=== PATIENT | male | born 1970 | race African-American/Black ===

== ENCOUNTER 2018-01-09 01:48 | Inpatient (IN) | payer OTHER ==
[2018-01-09] VITALS (10 sets, daily range): BP systolic 137–179; BP diastolic 82–129
[~2018-01-09] VITALS: Ht 190.5 cm; Wt 123.2 kg
--- NOTE | ~2018-01-09 | 2DMMODE ---
[facility] [address] [place] [address] 2 D/M-MODE ECHOCARDIOGRAM Name: STACIA INGRAM Room #: 207-P ADM IN M.R.#: [id number] Admission: 01/09/18 Attend Phys: Walt Brown Discharge: Date of : 66 Date of Service: 01/09/18 1442 Report #: [id number] THIS REPORT FOR: //name// APPROVED REPORT Study performed: 01/09/2018 12:53:44 EXAM: Comprehensive 2D, Doppler, and color-flow Echocardiogram Patient Location: In-Patient Room #: 207 Status: routine BSA: 2.51 HR: 62 bpm BP: 164/110 mmHg Rhythm: NSR Other Information Study Quality: Good Risk Factors: Cardiac Risk Factors: HTN, Hyperlipidemia, Smoking Indications Chest Pain Hypertension/HDD 2D Dimensions RVDd: 35.18 mm IVSd: 16.02 (7-11mm) LVOT Diam: 25.62 (18-24mm) LVDd: 43.89 mm PWd: 14.24 (7-11mm) Ascending Ao: 37.85 (22-36mm) LVDs: 26.27 (25-40mm) Aortic Root: 45.47 mm IVC: 18.00 mm Volumes Left Atrial Volume (Systole) Single Plane 4CH: 27.20 mL Single Plane 2CH: 41.24 mL LA ESV Index: 15.00 mL/m2 Aortic Valve AoV Peak Balwinder.: 1.34 m/s AO Peak Gr.: 7.13 mmHg LVOT Max P.21 mmHg LVOT Max V: 1.14 m/s SUZANNE Vmax: 4.41 cm2 [facility] [address] [address] 2 D/M-MODE ECHOCARDIOGRAM Name: STACIA INGRAM Room #: [address] [place] [address] IN [facility].#: [id number] Admission: 01/09/18 Attend Phys: Walt Brown Discharge: Date of : 66 Date of Service: 01/09/18 1442 Report #: [id number] Mitral Valve E/A Ratio: 0.7 MV Decel. Time: 200.89 ms MV E Max Balwinder.: 0.40 m/s MV A Balwinder.: 0.59 m/s MV PHT: 58.26 ms IVRT: 106.11 ms Pulmonary Valve PV Peak Balwinder.: 1.09 m/s PV Peak Gr.: 4.72 mmHg Pulmonary Vein P Vein S: 0.66 m/s P Vein A: 0.30 m/s P Vein D: 0.36 m/s P Vein A Dur.: 133.8 msec P Vein S/D Ratio: 1.83 Tricuspid Valve RAP Estimate: 5.00 mmHg Left Ventricle The left ventricle is normal size. Mild concentric left ventricular hypertrophy. The left ventricular systolic function is normal. The left ventricular ejection fraction is within the normal range. LVEF is 55-60%. Grade I - abnormal relaxation pattern. Right Ventricle The right ventricle is normal size. The right ventricular systolic function is normal. Atria The left atrium size is normal. The right atrium size is normal. Aortic Valve The aortic valve is normal in structure. Trace aortic regurgitation. There is no aortic valvular stenosis. Mitral Valve The mitral valve is normal in structure. Trace mitral regurgitation. No evidence of mitral valve stenosis. Tricuspid Valve The tricuspid valve is normal in structure. There is no tricuspid valve regurgitation noted. Unable to assess PA pressure. [facility] [address] [place] [address] 2 D/M-MODE ECHOCARDIOGRAM Name: STACIA INGRAM Room #: 207[facility] IN M.R.#: [id number] Admission: 01/09/18 Attend Phys: Walt Brown Discharge: Date of : 66 Date of Service: 01/09/18 1442 Report #: [id number] Pulmonic Valve The pulmonary valve is normal in structure. Trace pulmonic regurgitation. Great Vessels Aortic root is mildly dilated. The ascending aorta is normal in size. IVC is normal in size and collapses >50% with inspiration. Pericardium There is no pericardial effusion. <Conclusion> The left ventricle is normal size. Mild concentric left ventricular hypertrophy. The left ventricular systolic function is normal. Grade I - abnormal relaxation pattern. The right ventricle is normal size. The left atrium size is normal. Trace aortic regurgitation. Trace mitral regurgitation. There is no pericardial effusion. <ELECTRONICALLY SIGNED> By: Nicola Plascencia MD 01/09/181441 41 41 Nicola Plascencia MD /INF
--- NOTE | ~2018-01-09 | EKG ---
[place] [address] [facility] [place] [address] ELECTROCARDIOGRAM REPORT Name: STACIA INGRAM Room #: 207-P ADM IN M.R.#: [id number] Admission: 01/09/18 Attend Phys: Walt Bañuelos Discharge: Date of : 66 Report #: [id number] THIS REPORT FOR: //name// [facility] ED Test Date: 2018-01-09 Test Time: 03:06:22 Pat Name: STACIA INGRAM Department: Room: 207 Gender: M Group Work Program Aide: Pietro HOFF : 1970 Requested By: Antoni Gillespie Order Number: [id number] MD: Kulwant Porter Measurements Intervals [place] Rate: 66 P: 119 AL: 150 QRS: -16 QRSD: 89 T: 123 QT: 404 QTc: 424 Interpretive Statements Sinus rhythm Possible ventricular preexcitation Abnormal R-wave progression, early transition Inferior infarct, age indeterminate No previous ECG available for comparison Electronically Signed On 01-09-2018 8:01:32 HYDRAULIC DREDGE OPERATOR by Kulwant Porter [email or web address] <ELECTRONICALLY SIGNED> By: Kulwant Porter MD, [facility] 01/09/18 0801 5 5 Kulwant Porter MD, [facility] /EPI
--- NOTE | ~2018-01-09 | EKG ---
[place] [address] [address] [facility] [place] [address] ELECTROCARDIOGRAM REPORT Name: STACIA INGRAM Room #: 207-P ADM IN M.R.#: [id number] Admission: 01/09/18 Attend Phys: Walt Bañuelos Discharge: Date of : 66 Report #: [id number] THIS REPORT FOR: //name// [facility] Test Date: 2018-01-09 Test Time: 07:12:31 Pat Name: STACIA INGRAM Department: Room: 207 P Gender: M Certification Engineer: CATHERINE : 1970 Requested By: Marilee James Order Number: [id number] MD: Kulwant Porter Measurements Intervals [place] Rate: 74 P: 37 HI: 119 QRS: -26 QRSD: 110 T: 122 QT: 383 QTc: 425 Interpretive Statements Sinus rhythm Possible Vent pre-excitat'n(WPW) Inferior infarct, age indeterminate Early R-wave progression Nonspecific T wave abnormality No previous ECG available for comparison Electronically Signed On 01-09-2018 8:02:32 PAGE MAKEUP SYSTEM OPERATOR by Kulwant Porter [email or web address] <ELECTRONICALLY SIGNED> By: Kulwant Porter MD, [facility] 01/09/18801 1 1 Kulwant Porter MD, [facility] /EPI
--- NOTE | ~2018-01-09 | EKG ---
[place] [address] [address] [facility] [place] [address] ELECTROCARDIOGRAM REPORT Name: STACIA INGRAM Room #: 207-P ADM IN M.R.#: [id number] Admission: 01/09/18 Attend Phys: Walt Bañuelos Discharge: Date of : 66 Report #: [id number] THIS REPORT FOR: //name// [facility] ED Test Date: 2018-01-09 Test Time: 02:03:56 Pat Name: STACIA INGRAM Department: Room: 207 Gender: M Slash Trimmer: GUSTAVO : 1970 Requested By: Antoni Gillespie Order Number: [id number] MD: Kulwant Porter Measurements Intervals [place] Rate: 71 P: 122 OR: 153 QRS: -14 QRSD: 86 T: 136 QT: 346 QTc: 376 Interpretive Statements Sinus rhythm Possible ventricular preexcitation Abnormal R-wave progression, early transition Inferior infarct, age indeterminate No previous ECG available for comparison Electronically Signed On 01-09-2018 8:00:48 AROMATHERAPIST by Kulwant Porter [email or web address] <ELECTRONICALLY SIGNED> By: Kulwant Porter MD, [facility] 01/09/18 0800 2 2 Kulwant Porter MD, [facility] /EPI
[2018-01-09 02:23] LABS: ABSOLUTE NEUTROPHILS 3.9 thou/uL (1.4-8.2); EOSINOPHILS 2.4 % (0.0-3.0); HEMATOCRIT 43.1 % (42.0-52.0); HEMOGLOBIN 14.4 gm/dL (14.0-18.0); LYMPHOCYTES 28.5 % (24.0-44.0); MCH 32.4 pg (26.0-34.0); MCHC 33.3 g/dL (28.0-37.0); MCV 97.1 fL (80.0-100.0); MONOCYTES 9.6 % (1.0-8.0); PLATELET COUNT 206 thou/uL (150-400); POLYS 58.5 % (36.0-66.0); RBC 4.44 mil/uL (4.50-6.00); RDW 13.6 % (10.5-14.5); WBC 6.6 thou/uL (4.0-11.0)
[2018-01-09 02:38] LABS: ANION GAP 11 mmol/L (7-16); BUN 10 mg/dL (7-18); CALCIUM 9.2 mg/dL (8.5-10.1); CHLORIDE 103 mmol/L (98-107); CO2 24 mmol/L (21-32); CREATININE 1.1 mg/dL (0.7-1.3); GLUCOSE 115 mg/dL (74-106); POTASSIUM 4.1 mmol/L (3.5-5.1); SODIUM 138 mmol/L (136-145); TROPONIN-I <0.06 ng/mL (<0.06)
[2018-01-09 08:22] LABS: CHOLESTEROL 240 mg/dL (<200); HDL CHOLESTEROL 47 mg/dL (>40); LDL CHOLESTEROL 164 mg/dL (<100); TC:HDL 5.1 Ratio (Not establshd); TRIGLYCERIDE 149 mg/dL (<150); VLDL 30 mg/dL (<40)
[2018-01-09 19:06] LABS: GLYCOHEMOGLOBIN (HGB A1C) 5.9 % (4.8-5.6)
[2018-01-10 04:02] VITALS: BP 160/108
[2018-01-10 07:09] VITALS: BP 163/96
[2018-01-10] MEDS ORDERED: ATORVASTATIN CA40 MG PO (11:15)
[2018-01-10] MEDS ORDERED: AMLODIPINE BESY10 MG PO (11:15)
[2018-01-10] MEDS ORDERED: PEPCID20 MG PO (11:16)
[2018-01-10] MEDS ORDERED: ASA5UEC PO (11:16)
[2018-01-10] MEDS ORDERED: BENAZEPRIL HCL20 MG PO (11:16)
[2018-01-10 11:27] VITALS: BP 187/109
[2018-01-10 11:28] VITALS: BP 163/96
== END 2018-01-10 12:10 | disposition home or self-care (01) | DRG 313 ==
LOC: ER 01:48 → EROBS 03:13 → 2N 03:13
PROVIDERS: Emergency Medicine; Nurse Practitioner Acute Care
DX: R07.89 Other chest pain (principal); E78.5 Hyperlipidemia, unspecified; I11.9 Hypertensive heart disease without heart failure; F17.210 Nicotine dependence, cigarettes, uncomplicated; Z71.6 Tobacco abuse counseling; Z72.89 Other problems related to lifestyle; Z80.8 Family history of malignant neoplasm of other organs or systems
CPT/HCPCS: 10081

== ENCOUNTER 2018-03-21 16:59 | Emergency (ER) | payer OTHER ==
[~2018-03-21] VITALS: Ht 190.5 cm; Wt 122.5 kg
[~2018-03-21 16:59] MED LIST: AMLODIPINE BESY10 MG PO; ASA5UEC PO; ATORVASTATIN CA40 MG PO; BENAZEPRIL HCL20 MG PO; PEPCID20 MG PO
[2018-03-21 17:34] VITALS: BP 157/111
== END 2018-03-21 17:35 | disposition home or self-care (01) ==
LOC: ER 16:59
DX: A64 Unspecified sexually transmitted disease (principal); I10 Essential (primary) hypertension; E78.5 Hyperlipidemia, unspecified

== ENCOUNTER 2019-05-30 20:18 | Inpatient (IN) | payer OTHER ==
[~2019-05-30] VITALS: Ht 190.5 cm; Wt 112.9 kg
[2019-05-30 20:19] VITALS: BP 141/104
[2019-05-30 21:02] LABS: ABSOLUTE NEUTROPHILS 2.4 thou/uL (1.4-8.2); BASOPHILS 1.3 % (0.0-2.0); EOSINOPHILS 0.1 % (0.0-3.0); HEMATOCRIT 49.1 % (42.0-52.0); HEMOGLOBIN 16.5 gm/dL (14.0-18.0); MCHC 33.6 g/dL (28.0-37.0); MCV 98.2 fL (80.0-100.0); MONOCYTES 10.8 % (1.0-8.0); PLATELET COUNT 142 thou/uL (150-400); POLYS 60.8 % (36.0-66.0); RDW 13.4 % (10.5-14.5)
[2019-05-30 23:03] LABS: CALCIUM 8.5 mg/dL (8.5-10.1); CREATININE 1.2 mg/dL (0.7-1.3); POTASSIUM 3.5 mmol/L (3.5-5.1)
[2019-05-30 23:13] LABS: ALBUMIN 3.2 g/dL (3.4-5.0); DIRECT BILIRUBIN 0.1 mg/dL (<0.1-0.2); TOTAL BILIRUBIN 0.4 mg/dL (<0.1-1.0); TOTAL PROTEIN 6.9 g/dL (6.4-8.2); TROPONIN-I 0.09 ng/mL (<0.06)
[2019-05-31] VITALS (9 sets, daily range): BP systolic 122–150; BP diastolic 72–97
[2019-05-31 05:45] LABS: CHOLESTEROL 180 mg/dL (<200); HDL CHOLESTEROL 36 mg/dL (>40); LDL CHOLESTEROL 119 mg/dL (<100); TRIGLYCERIDE 125 mg/dL (<150); VLDL 25 mg/dL (<40)
[2019-05-31 05:53] LABS: SERUM ASSESSMENT Clear
--- NOTE | 2019-05-31 10:57 | EKG ---
[facility] [place] [address] ELECTROCARDIOGRAM REPORT Name: STACIA INGRAM Room #: 353-P ADM IN M.R.#: [id number] Admission: 05/30/19 Attend Phys: Kee Diaz MD Discharge: Date of : 66 Report #: [id number] THIS REPORT FOR: cc: ISAURO - Danette family physician/PCP ISAURO - Danette family physician/PCP Kulwant Porter MD [facility] THIS REPORT FOR: //name// [facility] ED Test Date: 2019-05-30 Test Time: 20:23:24 Pat Name: STACIA INGRAM Department: Room: 353 Gender: M Vehicle Glass Technician: josie hicks : 1970 Requested By: Kenzie Ortiz Order Number: [id number] MD: Kulwant Porter Measurements Intervals [place] Rate: 104 P: 6 IA: 135 QRS: -64 QRSD: 81 T: 59 QT: 317 QTc: 417 Interpretive Statements Sinus tachycardia Abnormal R-wave progression, late transition Inferior infarct, old Compared to ECG 01/09/2018 07:12:31 T wave abnormality is no longer present Inferior Q waves are no longer present Electronically Signed On 05-31-2019 10:55:45 CDT by Kulwant Porter [email or web address] <ELECTRONICALLY SIGNED> By: Kulwant Porter MD, FACC 05/31/19 1055 22 22 Kulwant Porter MD, FAC /EPI
[2019-06-01 03:22] VITALS: BP 133/85
[2019-06-01 08:11] VITALS: BP 148/86
[2019-06-01 14:00] VITALS: BP 131/91
[2019-06-01 15:49] VITALS: BP 143/94
[2019-06-01 21:00] VITALS: BP 131/97
[2019-06-02 05:15] VITALS: BP 152/104
[2019-06-02 05:34] LABS: HEMATOCRIT 46.9 % (42.0-52.0); HEMOGLOBIN 15.7 gm/dL (14.0-18.0); MCH 33.2 pg (26.0-34.0); MCHC 33.5 g/dL (28.0-37.0); MCV 99.2 fL (80.0-100.0); RBC 4.72 mil/uL (4.50-6.00); RDW 13.4 % (10.5-14.5); WBC 2.9 thou/uL (4.0-11.0)
[2019-06-02 09:03] VITALS: BP 159/114
[2019-06-02 12:37] VITALS: BP 171/119
--- NOTE | 2019-06-02 15:23 | EKG ---
[facility] [place] [address] ELECTROCARDIOGRAM REPORT Name: STACIA INGRAM Room #: 353-P ADM IN M.R.#: [id number] Admission: 05/30/19 Attend Phys: Kee Diaz MD Discharge: Date of : 66 Report #: [id number] THIS REPORT FOR: cc: FAM - No family physician/PCP FAM - No family physician/PCP Alan Horton MD ~ THIS REPORT FOR: //name// [facility] Test Date: 2019-06-02 Test Time: 15:11:30 Pat Name: STACIA INGRAM Department: Room: 353 P Gender: M Peoplesoft Functional Analyst: Sherrell TRINH : 1970 Requested By: Jayce Blank Order Number: [id number] MD: Alan Horton Measurements Intervals [place] Rate: 84 P: -15 WV: 126 QRS: -49 QRSD: 87 T: 54 QT: 356 QTc: 421 Interpretive Statements Sinus rhythm LAD, consider left anterior fascicular block Compared to ECG 05/30/2019 20:23:24 Sinus tachycardia no longer present Myocardial infarct finding no longer present Electronically Signed On 06-02-2019 15:22:07 CDT by Alan Horton [email or web address] <ELECTRONICALLY SIGNED> By: Alan Horton MD 06/02/19 152 10 10 Alan Horton MD /EPI
[2019-06-02 17:02] VITALS: BP 150/78
[2019-06-02 19:40] VITALS: BP 142/108
[2019-06-02 23:59] VITALS: BP 144/94
[2019-06-03 05:03] VITALS: BP 143/85
[2019-06-03 07:20] VITALS: BP 149/85
[2019-06-03 12:30] VITALS: BP 146/87
[2019-06-03 16:07] LABS: HEP B SURFACE Ab(ANTI-HBS Non Reactive (()); HEPATITIS B SURFACE AG Negative (Negative); HEPATITIS C VIRUS AB <0.1 (0.0-0.9); HIV ANTIBODY Non Reactive (Non Reactive)
[2019-06-03 17:00] VITALS: BP 155/94
[2019-06-03 20:51] VITALS: BP 146/102
[2019-06-04 05:10] LABS: HEMATOCRIT 46.2 % (42.0-52.0); HEMOGLOBIN 15.7 gm/dL (14.0-18.0); MCH 33.6 pg (26.0-34.0); MCHC 33.9 g/dL (28.0-37.0); MCV 98.9 fL (80.0-100.0); RBC 4.67 mil/uL (4.50-6.00); RDW 13.5 % (10.5-14.5); WBC 4.1 thou/uL (4.0-11.0)
[2019-06-04 05:32] LABS: ALBUMIN 2.7 g/dL (3.4-5.0); CALCIUM 8.8 mg/dL (8.5-10.1); CREATININE 1.1 mg/dL (0.7-1.3); POTASSIUM 4.2 mmol/L (3.5-5.1); TOTAL BILIRUBIN 0.4 mg/dL (<0.1-1.0); TOTAL PROTEIN 7.5 g/dL (6.4-8.2)
[2019-06-04 05:34] VITALS: BP 140/94
[2019-06-04 08:00] VITALS: BP 147/95
--- NOTE | 2019-06-04 14:47 | 2DMMODE ---
[facility] [address] [place] [address] 2 D/M-MODE ECHOCARDIOGRAM Name: STACIA INGRAM Room #: 210-P ADM IN M.R.#: [id number] Admission: 05/30/19 Attend Phys: Kee Diaz MD Discharge: Date of : 66 Report #: [id number] THIS REPORT FOR: cc: ISAURO - No family physician/PCP FAM - No family physician/PCP Nicola Plascencia MD ~ APPROVED REPORT Study performed: 06/04/2019 13:51:42 EXAM: Comprehensive 2D, Doppler, and color-flow Echocardiogram Patient Location: Bedside Room #: 210 Status: routine BSA: 2.44 HR: 88 bpm BP: 147/95 mmHg Rhythm: NSR Other Information Study Quality: Fair/not all measurements taken Technically limited study due to patient sitting up in bed very short of breath. Indications Shortness of breath, fever. 2D Dimensions IVSd: 16.00 (7-11mm) LVOT Diam: 25.00 (18-24mm) LVDd: 45.09 mm PWd: 14.00 (7-11mm) Ascending Ao: 36.93 (22-36mm) LVDs: 33.92 (25-40mm) Aortic Root: 48.90 mm Aortic Valve AoV Peak Balwinder.: 1.32 m/s AO Peak Gr.: 6.95 mmHg LVOT Max P.04 mmHg LVOT Max V: 1.23 m/s SUZANNE Vmax: 4.57 cm2 Mitral Valve E/A Ratio: 0.8 MV Decel. Time: 321.49 ms MV E Max Balwinder.: 0.47 m/s [facility] [email or web address] [address] 2 D/M-MODE ECHOCARDIOGRAM Name: STACIA INGRAM Room #: 210-P [facility] IN ..#: [id number] Admission: 05/30/19 Attend Phys: Kee Diaz MD Discharge: Date of : 66 Report #: [id number] MV A Balwinder.: 0.61 m/s MV PHT: 93.23 ms IVRT: 65.74 ms Pulmonary Valve PV Peak Balwinder.: 0.98 m/s PV Peak Gr.: 3.86 mmHg Tricuspid Valve RAP Estimate: 5.00 mmHg Left Ventricle The left ventricle is normal size. There is normal LV segmental wall motion. Moderate concentric left ventricular hypertrophy. Left ventricular systolic function is normal. LVEF is 55-60%. Mild diastolic dysfunction is present (impaired relaxation pattern). Right Ventricle Right ventricle is not well visualized. Atria The left atrium size is normal. The right atrium size is normal. Aortic Valve The aortic valve is normal in structure. No aortic regurgitation is present. There is no aortic valvular stenosis. Mitral Valve The mitral valve is normal in structure. There is no mitral valve regurgitation noted. No evidence of mitral valve stenosis. Tricuspid Valve The tricuspid valve is normal in structure. There is no tricuspid valve regurgitation noted. Unable to assess PA pressure. Pulmonic Valve The pulmonary valve is normal in structure. Trace pulmonic regurgitation. Great Vessels Aortic root is dilated at 4.9cm The ascending aorta is normal in size. IVC is normal in size and collapses >50% with inspiration. Pericardium [facility] [email or web address] [address] 2 D/M-MODE ECHOCARDIOGRAM Name: STACIA INGRAM [facility] IN M.R.#: [id number] Admission: 05/30/19 Attend Phys: Kee Diaz MD Discharge: Date of : 66 Report #: [id number] There is no pericardial effusion. <Conclusion> The left ventricle is normal size. Moderate concentric left ventricular hypertrophy. Left ventricular systolic function is normal. Mild diastolic dysfunction is present (impaired relaxation pattern). Right ventricle is not well visualized. The left atrium size is normal. The aortic valve is normal in structure. There is no mitral valve regurgitation noted. There is no tricuspid valve regurgitation noted. <ELECTRONICALLY SIGNED> By: Nicola Plascencia MD 06/04/19 1446 1446 1446 Nicola Plascencia MD /INF
[2019-06-04 17:00] VITALS: BP 137/94
[2019-06-04 19:00] VITALS: BP 145/85
[2019-06-05] VITALS (9 sets, daily range): BP systolic 126–154; BP diastolic 75–96
[2019-06-05 15:08] LABS: ADENOVIRUS Negative (Negative); INFLUENZA A Negative (Negative); INFLUENZA B Negative (Negative); METAPNEUMOVIRUS Negative (Negative); PARAINFLUENZA 1 Negative (Negative); PARAINFLUENZA 2 Negative (Negative); PARAINFLUENZA 3 Negative (Negative); RHINOVIRUS Negative (Negative); RSV A Negative (Negative); RSV B Negative (Negative)
[2019-06-06] VITALS (23 sets, daily range): BP systolic 115–160; BP diastolic 73–104
[2019-06-06 06:30] LABS: HEMOGLOBIN 15.2 gm/dL (14.0-18.0); MCHC 33.8 g/dL (28.0-37.0); MCV 97.9 fL (80.0-100.0); RBC 4.6 mil/uL (4.50-6.00); RDW 13.4 % (10.5-14.5)
[2019-06-06 06:42] LABS: CALCIUM 8.7 mg/dL (8.5-10.1); CREATININE 1.1 mg/dL (0.7-1.3); POTASSIUM 4.2 mmol/L (3.5-5.1)
[2019-06-07] VITALS (23 sets, daily range): BP systolic 105–146; BP diastolic 75–104
[2019-06-07 04:14] LABS: BE(vivo) 0.3 mmol/L (-2 to +3); HCO3 23.3 mmol/L (22.0-26.0); PCO2 33.2 mmHg (35.0-45.0); PO2 71.7 mmHg (80.0-100.0); pH 7.464 (7.360-7.450); sO2 95.4 % (92.0-98.0)
[2019-06-07 04:50] LABS: ABSOLUTE NEUTROPHILS 5.9 thou/uL (1.4-8.2); BASOPHILS 0.3 % (0.0-2.0); HEMATOCRIT 44.3 % (42.0-52.0); HEMOGLOBIN 14.9 gm/dL (14.0-18.0); LYMPHOCYTES 5.9 % (24.0-44.0); MCH 33.2 pg (26.0-34.0); MCHC 33.7 g/dL (28.0-37.0); MCV 98.5 fL (80.0-100.0); MONOCYTES 6.5 % (1.0-8.0); POLYS 87.3 % (36.0-66.0); RDW 13.1 % (10.5-14.5); WBC 6.7 thou/uL (4.0-11.0)
[2019-06-07 04:54] LABS: PLATELET COUNT 394 thou/uL (150-400)
[2019-06-07 05:20] LABS: ALBUMIN 2.4 g/dL (3.4-5.0); CALCIUM 8.7 mg/dL (8.5-10.1); CREATININE 1.3 mg/dL (0.7-1.3); POTASSIUM 4.4 mmol/L (3.5-5.1); TOTAL BILIRUBIN 0.3 mg/dL (<0.1-1.0); TOTAL PROTEIN 7.5 g/dL (6.4-8.2)
--- NOTE | 2019-06-07 11:47 | EKG ---
[facility] [place] [address] ELECTROCARDIOGRAM REPORT Name: STACIA INGRAM Room #: 237-P ADM IN M.R.#: [id number] Admission: 05/30/19 Attend Phys: Kee Diaz MD Discharge: Date of : 66 Report #: [id number] THIS REPORT FOR: cc: FAM - No family physician/PCP FAM - No family physician/PCP Alan Horton MD ~ THIS REPORT FOR: //name// [facility] Test Date: 2019-06-05 Test Time: 18:27:28 Pat Name: STACIA INGRAM Department: Room: 237 P Gender: M Analytics Analyst: Sherrell TRINH : 1970 Requested By: Jayce Blank Order Number: [id number] MD: Alan Horton Measurements Intervals [place] Rate: 104 P: 18 ND: 138 QRS: -46 QRSD: 86 T: 55 QT: 333 QTc: 438 Interpretive Statements Sinus tachycardia Consider left atrial enlargement LAD, consider left anterior fascicular block Abnormal R-wave progression, late transition Baseline wander in lead(s) V2 Compared to ECG 06/02/2019 15:11:30 Sinus rhythm no longer present Electronically Signed On 06-07-2019 11:46:11 CDT by Alan Horton [email or web address] <ELECTRONICALLY SIGNED> By: Alan Horton MD 06/07/19 1146 26 26 Alan Horton MD /EPI
--- NOTE | 2019-06-07 11:53 | EKG ---
[facility] [place] [address] ELECTROCARDIOGRAM REPORT Name: STACIA INGRAM Room #: 237-P ADM IN M.R.#: [id number] Admission: 05/30/19 Attend Phys: Kee Diaz MD Discharge: Date of : 66 Report #: [id number] THIS REPORT FOR: cc: ISAURO - No family physician/PCP ISAURO - No family physician/PCP Alan Horton MD ~ THIS REPORT FOR: //name// [facility] Test Date: 2019-06-06 Test Time: 08:15:57 Pat Name: STACIA INGRAM Department: Room: 237 P Gender: M Acquisitions Librarian: KEENAN : 1970 Requested By: Jayce Blank Order Number: [id number] MD: Alan Horton Measurements Intervals [place] Rate: 81 P: 14 CO: 149 QRS: -38 QRSD: 93 T: 53 QT: 380 QTc: 441 Interpretive Statements Sinus rhythm Left axis deviation Compared to ECG 06/02/2019 15:11:30 Left-axis deviation now present Electronically Signed On 06-07-2019 11:51:24 CDT by Alan Horton [email or web address] <ELECTRONICALLY SIGNED> By: Alan Horton MD 06/07/19 1151 4 Alan Horton MD /EPI
[2019-06-08] VITALS (47 sets, daily range): BP systolic 91–168; BP diastolic 41–111
[2019-06-08 05:23] LABS: ABSOLUTE NEUTROPHILS 5.6 thou/uL (1.4-8.2); BASOPHILS 0.3 % (0.0-2.0); HEMATOCRIT 46.4 % (42.0-52.0); HEMOGLOBIN 15.4 gm/dL (14.0-18.0); LYMPHOCYTES 9.5 % (24.0-44.0); MCH 32.9 pg (26.0-34.0); MCHC 33.3 g/dL (28.0-37.0); MONOCYTES 5.8 % (1.0-8.0); PLATELET COUNT 442 thou/uL (150-400); POLYS 84.4 % (36.0-66.0); RBC 4.69 mil/uL (4.50-6.00); RDW 13.4 % (10.5-14.5); WBC 6.6 thou/uL (4.0-11.0)
[2019-06-08 05:36] LABS: FIBRINOGEN 434.1 mg/dL (210-360); PROTIME 9.9 Seconds (9.3-11.4)
[2019-06-08 05:48] LABS: ALBUMIN 2.4 g/dL (3.4-5.0); CALCIUM 8.6 mg/dL (8.5-10.1); CREATININE 1.1 mg/dL (0.7-1.3); POTASSIUM 4.2 mmol/L (3.5-5.1); TOTAL BILIRUBIN 0.5 mg/dL (<0.1-1.0); TOTAL PROTEIN 7.1 g/dL (6.4-8.2)
[2019-06-08 15:49] LABS: BE(vivo) 2.2 mmol/L (-2 to +3); HCO3 27.9 mmol/L (22.0-26.0); PCO2 46.9 mmHg (35.0-45.0); PO2 73.7 mmHg (80.0-100.0); pH 7.393 (7.360-7.450); sO2 94.6 % (92.0-98.0)
[2019-06-08 19:24] LABS: BE(vivo) 3.3 mmol/L (-2 to +3); HCO3 29.7 mmol/L (22.0-26.0); PCO2 51.4 mmHg (35.0-45.0); PO2 92.9 mmHg (80.0-100.0); sO2 96.9 % (92.0-98.0)
[2019-06-09] VITALS (24 sets, daily range): BP systolic 94–137; BP diastolic 67–96
[2019-06-09 08:04] LABS: ABSOLUTE NEUTROPHILS 6.4 thou/uL (1.4-8.2); BASOPHILS 0.4 % (0.0-2.0); EOSINOPHILS 1.5 % (0.0-3.0); HEMATOCRIT 47.7 % (42.0-52.0); HEMOGLOBIN 16.4 gm/dL (14.0-18.0); LYMPHOCYTES 10.3 % (24.0-44.0); MCH 34.4 pg (26.0-34.0); MCHC 34.5 g/dL (28.0-37.0); MCV 99.6 fL (80.0-100.0); MONOCYTES 4.4 % (1.0-8.0); PLATELET COUNT 498 thou/uL (150-400); POLYS 83.4 % (36.0-66.0); RBC 4.79 mil/uL (4.50-6.00); RDW 13.5 % (10.5-14.5); WBC 7.7 thou/uL (4.0-11.0)
[2019-06-09 08:21] LABS: PROTIME 10.5 Seconds (9.3-11.4)
[2019-06-09 08:27] LABS: POTASSIUM 4.4 mmol/L (3.5-5.1)
[2019-06-09 09:17] LABS: FIBRINOGEN ND mg/dL (210-360)
[2019-06-09 09:33] LABS: BE(vivo) 3.1 mmol/L (-2 to +3); HCO3 29.8 mmol/L (22.0-26.0); PCO2 52.5 mmHg (35.0-45.0); PO2 72.1 mmHg (80.0-100.0); pH 7.372 (7.360-7.450); sO2 93.9 % (92.0-98.0)
[2019-06-09 10:47] LABS: CREATININE 1.4 mg/dL (0.7-1.3)
[2019-06-09 10:48] LABS: CALCIUM 8.4 mg/dL (8.5-10.1); TOTAL BILIRUBIN 0.5 mg/dL (<0.1-1.0)
[2019-06-09 10:54] LABS: ALBUMIN 2.6 g/dL (3.4-5.0); TOTAL PROTEIN 6.8 g/dL (6.4-8.2)
[2019-06-10] VITALS (27 sets, daily range): BP systolic 102–135; BP diastolic 75–92
[2019-06-10 06:11] LABS: CALCIUM 7.6 mg/dL (8.5-10.1); CREATININE 1.3 mg/dL (0.7-1.3); POTASSIUM 4.2 mmol/L (3.5-5.1)
[2019-06-11] VITALS (18 sets, daily range): BP systolic 102–131; BP diastolic 56–91
[2019-06-11 05:43] LABS: HEMATOCRIT 46.4 % (42.0-52.0); HEMOGLOBIN 16.2 gm/dL (14.0-18.0); MCH 35.1 pg (26.0-34.0); MCHC 34.9 g/dL (28.0-37.0); MCV 100.4 fL (80.0-100.0); RBC 4.62 mil/uL (4.50-6.00); RDW 13.5 % (10.5-14.5); WBC 9.9 thou/uL (4.0-11.0)
[2019-06-11 06:09] LABS: CALCIUM 7.6 mg/dL (8.5-10.1); CREATININE 1.2 mg/dL (0.7-1.3); POTASSIUM 4.8 mmol/L (3.5-5.1)
[2019-06-12] VITALS (34 sets, daily range): BP systolic 104–127; BP diastolic 62–87
[2019-06-12 05:18] LABS: ALBUMIN 2.6 g/dL (3.4-5.0); CALCIUM 8.2 mg/dL (8.5-10.1); PHOSPHORUS 2.7 mg/dL (2.5-4.9); POTASSIUM 4.8 mmol/L (3.5-5.1); TOTAL BILIRUBIN 0.7 mg/dL (<0.1-1.0); TOTAL PROTEIN 6.5 g/dL (6.4-8.2)
[2019-06-12 05:48] LABS: ABSOLUTE NEUTROPHILS 7.5 thou/uL (1.4-8.2); BASOPHILS 0.4 % (0.0-2.0); EOSINOPHILS 0.8 % (0.0-3.0); HEMATOCRIT 44.9 % (42.0-52.0); HEMOGLOBIN 15.2 gm/dL (14.0-18.0); LYMPHOCYTES 12.5 % (24.0-44.0); MCH 34.2 pg (26.0-34.0); MCHC 33.9 g/dL (28.0-37.0); MCV 101.1 fL (80.0-100.0); MONOCYTES 8.5 % (1.0-8.0); PLATELET COUNT 496 thou/uL (150-400); POLYS 77.8 % (36.0-66.0); RBC 4.44 mil/uL (4.50-6.00); RDW 13.5 % (10.5-14.5); WBC 9.7 thou/uL (4.0-11.0)
[2019-06-12 11:07] LABS: T-SPOT.TB Negative
[2019-06-13] VITALS (24 sets, daily range): BP systolic 100–129; BP diastolic 68–91
[2019-06-13 05:24] LABS: HEMATOCRIT 44.3 % (42.0-52.0); HEMOGLOBIN 14.7 gm/dL (14.0-18.0); MCH 33.7 pg (26.0-34.0); MCHC 33.1 g/dL (28.0-37.0); RBC 4.34 mil/uL (4.50-6.00)
[2019-06-13 05:47] LABS: CALCIUM 8.9 mg/dL (8.5-10.1); CREATININE 1.2 mg/dL (0.7-1.3)
[2019-06-14] VITALS (29 sets, daily range): BP systolic 19–184; BP diastolic 64–105
[2019-06-14 05:38] LABS: ABSOLUTE NEUTROPHILS 10.3 thou/uL (1.4-8.2); BASOPHILS 0.7 % (0.0-2.0); EOSINOPHILS 0.1 % (0.0-3.0); HEMATOCRIT 41.2 % (42.0-52.0); HEMOGLOBIN 13.5 gm/dL (14.0-18.0); LYMPHOCYTES 10.4 % (24.0-44.0); MCH 33.1 pg (26.0-34.0); MCHC 32.7 g/dL (28.0-37.0); MONOCYTES 1.7 % (1.0-8.0); PLATELET COUNT 467 thou/uL (150-400); POLYS 87.1 % (36.0-66.0); RBC 4.08 mil/uL (4.50-6.00); RDW 13.7 % (10.5-14.5); WBC 11.8 thou/uL (4.0-11.0)
[2019-06-14 05:50] LABS: PROTIME 10.3 Seconds (9.3-11.4)
[2019-06-14 06:09] LABS: FIBRINOGEN 530.6 mg/dL (210-360)
[2019-06-14 07:15] LABS: BUN 47 mg/dL (7-18); CO2 38 mmol/L (21-32)
[2019-06-14 07:16] LABS: CREATININE 1.3 mg/dL (0.7-1.3); GLUCOSE 274 mg/dL (74-106); SGOT 49 U/L (15-37); TOTAL BILIRUBIN 0.4 mg/dL (<0.1-1.0)
[2019-06-14 07:17] LABS: CALCIUM 10.1 mg/dL (8.5-10.1); SGPT 62 U/L (30-65)
[2019-06-14 07:18] LABS: TOTAL PROTEIN 7.6 g/dL (6.4-8.2)
[2019-06-14 07:33] LABS: ANION GAP < 0 mmol/L (7-16); CHLORIDE 102 mmol/L (98-107); POTASSIUM 5.6 mmol/L (3.5-5.1); SODIUM 139 mmol/L (136-145)
[2019-06-15] VITALS (27 sets, daily range): BP systolic 127–172; BP diastolic 68–98
[2019-06-15 04:15] LABS: HEMATOCRIT 41.2 % (42.0-52.0); HEMOGLOBIN 13.5 gm/dL (14.0-18.0); MCHC 32.9 g/dL (28.0-37.0); MCV 100.3 fL (80.0-100.0); RBC 4.11 mil/uL (4.50-6.00); RDW 13.6 % (10.5-14.5); WBC 15.9 thou/uL (4.0-11.0)
[2019-06-15 04:21] LABS: CREATININE 1.3 mg/dL (0.7-1.3); POTASSIUM 5.5 mmol/L (3.5-5.1)
[2019-06-16] VITALS (24 sets, daily range): BP systolic 145–172; BP diastolic 88–103
[2019-06-16 05:13] LABS: HEMATOCRIT 42.6 % (42.0-52.0); HEMOGLOBIN 13.9 gm/dL (14.0-18.0); MCH 32.8 pg (26.0-34.0); MCHC 32.5 g/dL (28.0-37.0); RBC 4.22 mil/uL (4.50-6.00); RDW 13.9 % (10.5-14.5); WBC 13.5 thou/uL (4.0-11.0)
[2019-06-16 05:22] LABS: CALCIUM 10.2 mg/dL (8.5-10.1); CREATININE 1.2 mg/dL (0.7-1.3); POTASSIUM 4.2 mmol/L (3.5-5.1)
[2019-06-16 08:44] LABS: BE(vivo) 6.6 mmol/L (-2 to +3); HCO3 34.4 mmol/L (22.0-26.0); PCO2 62.4 mmHg (35.0-45.0); PO2 97.1 mmHg (80.0-100.0); pH 7.359 (7.360-7.450)
[2019-06-17] VITALS (20 sets, daily range): BP systolic 117–154; BP diastolic 79–98
[2019-06-17 05:39] LABS: FIBRINOGEN 391.2 mg/dL (210-360); PROTIME 10.7 Seconds (9.3-11.4)
[2019-06-17 05:44] LABS: ABSOLUTE NEUTROPHILS 8.5 thou/uL (1.4-8.2); BASOPHILS 0.2 % (0.0-2.0); HEMATOCRIT 44.5 % (42.0-52.0); HEMOGLOBIN 14.5 gm/dL (14.0-18.0); LYMPHOCYTES 10.1 % (24.0-44.0); MCH 33.2 pg (26.0-34.0); MCHC 32.5 g/dL (28.0-37.0); MCV 102.1 fL (80.0-100.0); MONOCYTES 6.2 % (1.0-8.0); PLATELET COUNT 451 thou/uL (150-400); POLYS 83.5 % (36.0-66.0); RBC 4.36 mil/uL (4.50-6.00); RDW 13.7 % (10.5-14.5); WBC 10.2 thou/uL (4.0-11.0)
[2019-06-17 06:01] LABS: ALBUMIN 2.9 g/dL (3.4-5.0); CALCIUM 10.2 mg/dL (8.5-10.1); CREATININE 1.2 mg/dL (0.7-1.3); TOTAL BILIRUBIN 0.4 mg/dL (<0.1-1.0); TOTAL PROTEIN 7.5 g/dL (6.4-8.2)
[2019-06-17 06:18] LABS: POTASSIUM 5.5 mmol/L (3.5-5.1)
[2019-06-18] VITALS (35 sets, daily range): BP systolic 97–199; BP diastolic 64–118
[2019-06-18 06:44] LABS: CALCIUM 9.3 mg/dL (8.5-10.1); CREATININE 1.3 mg/dL (0.7-1.3); POTASSIUM 4.7 mmol/L (3.5-5.1)
[2019-06-19] VITALS (48 sets, daily range): BP systolic 94–127; BP diastolic 63–91
[2019-06-19 10:48] LABS: BE(vivo) 0.9 mmol/L (-2 to +3); HCO3 25.8 mmol/L (22.0-26.0); PCO2 42.1 mmHg (35.0-45.0); PO2 72.8 mmHg (80.0-100.0); pH 7.405 (7.360-7.450); sO2 94.7 % (92.0-98.0)
[2019-06-19 12:20] LABS: CALCIUM 9.8 mg/dL (8.5-10.1); CREATININE 1.4 mg/dL (0.7-1.3); POTASSIUM 4.1 mmol/L (3.5-5.1)
[2019-06-20] VITALS (34 sets, daily range): BP systolic 105–139; BP diastolic 73–93
[2019-06-20 10:45] LABS: ALBUMIN 2.5 g/dL (3.4-5.0); CALCIUM 9.8 mg/dL (8.5-10.1); CREATININE 1.2 mg/dL (0.7-1.3); POTASSIUM 3.9 mmol/L (3.5-5.1); TOTAL BILIRUBIN 0.5 mg/dL (<0.1-1.0)
[2019-06-21] VITALS (24 sets, daily range): BP systolic 95–141; BP diastolic 68–95
[2019-06-21 05:41] LABS: CALCIUM 9.6 mg/dL (8.5-10.1); POTASSIUM 3.5 mmol/L (3.5-5.1)
[2019-06-22] VITALS (28 sets, daily range): BP systolic 108–168; BP diastolic 74–109
[2019-06-22 04:19] LABS: ABSOLUTE NEUTROPHILS 5.7 thou/uL (1.4-8.2); BASOPHILS 0.3 % (0.0-2.0); EOSINOPHILS 4.1 % (0.0-3.0); HEMATOCRIT 41.8 % (42.0-52.0); HEMOGLOBIN 13.6 gm/dL (14.0-18.0); LYMPHOCYTES 17.3 % (24.0-44.0); MCH 32.7 pg (26.0-34.0); MCHC 32.6 g/dL (28.0-37.0); MCV 100.3 fL (80.0-100.0); MONOCYTES 8.9 % (1.0-8.0); PLATELET COUNT 249 thou/uL (150-400); POLYS 69.4 % (36.0-66.0); RBC 4.17 mil/uL (4.50-6.00); RDW 13.9 % (10.5-14.5); WBC 8.2 thou/uL (4.0-11.0)
[2019-06-22 04:39] LABS: ALBUMIN 2.3 g/dL (3.4-5.0); CALCIUM 9.2 mg/dL (8.5-10.1); POTASSIUM 3.4 mmol/L (3.5-5.1); TOTAL BILIRUBIN 0.5 mg/dL (<0.1-1.0); TOTAL PROTEIN 6.8 g/dL (6.4-8.2)
[2019-06-23] VITALS (24 sets, daily range): BP systolic 127–162; BP diastolic 78–108
[2019-06-23 06:37] LABS: HEMATOCRIT 48.6 % (42.0-52.0); MCH 33.2 pg (26.0-34.0); MCHC 32.5 g/dL (28.0-37.0); MCV 102.1 fL (80.0-100.0); RBC 4.76 mil/uL (4.50-6.00); RDW 14.3 % (10.5-14.5); WBC 14.5 thou/uL (4.0-11.0)
[2019-06-23 06:47] LABS: CALCIUM 10.1 mg/dL (8.5-10.1); CREATININE 1.3 mg/dL (0.7-1.3); MAGNESIUM 2.2 mg/dL (1.8-2.4); POTASSIUM 3.5 mmol/L (3.5-5.1)
[2019-06-23 06:56] LABS: HEMOGLOBIN 15.8 gm/dL (14.0-18.0)
[2019-06-24] VITALS (28 sets, daily range): BP systolic 113–148; BP diastolic 67–99
--- NOTE | 2019-06-24 08:07 | EKG ---
[facility] [place] [address] ELECTROCARDIOGRAM REPORT Name: STACIA INGRAM Room #: 238-P ADM IN M.R.#: [id number] Admission: 05/30/19 Attend Phys: Kee Diaz MD Discharge: Date of : 66 Report #: [id number] THIS REPORT FOR: cc: ISAURO - No family physician/PCP ISAURO - No family physician/PCP Kulwant Porter MD [facility] ~ THIS REPORT FOR: //name// [facility] Test Date: 2019-06-23 Test Time: 18:58:18 Pat Name: STACIA INGRAM Department: Room: 238 P Gender: M Laboratory Animal Care Veterinarian: Gia SOTO : 1970 Requested By: Nicola Plascencia Order Number: [id number] MD: Kulwant Porter Measurements Intervals [place] Rate: 112 P: 51 SD: 106 QRS: -32 QRSD: 79 T: 130 QT: 341 QTc: 466 Interpretive Statements Sinus tachycardia Left axis deviation Nonspecific ST segment abnormality Compared to ECG 06/06/2019 08:15:[address] segment abnormality is now present Electronically Signed On 06-24-2019 8:06:08 CDT by Kulwant Porter [email or web address] <ELECTRONICALLY SIGNED> By: Kulwant Porter MD, [facility] 06/24/19 0806 57 57 Kulwant Porter MD, [facility] /EPI
[2019-06-24 12:26] LABS: HEMATOCRIT 39.9 % (42.0-52.0); MCHC 32.9 g/dL (28.0-37.0); MCV 100.1 fL (80.0-100.0); RBC 3.99 mil/uL (4.50-6.00); RDW 13.8 % (10.5-14.5); WBC 11.5 thou/uL (4.0-11.0)
[2019-06-24 12:30] LABS: HEMOGLOBIN 13.2 gm/dL (14.0-18.0)
[2019-06-24 12:36] LABS: CALCIUM 8.8 mg/dL (8.5-10.1); CREATININE 1.3 mg/dL (0.7-1.3); MAGNESIUM 1.7 mg/dL (1.8-2.4)
[2019-06-25] VITALS (15 sets, daily range): BP systolic 98–130; BP diastolic 53–94
[2019-06-25 07:42] LABS: HEMATOCRIT 38.5 % (42.0-52.0); MCH 33.5 pg (26.0-34.0); MCHC 33.6 g/dL (28.0-37.0); MCV 99.6 fL (80.0-100.0); RBC 3.87 mil/uL (4.50-6.00); RDW 13.6 % (10.5-14.5); WBC 8.8 thou/uL (4.0-11.0)
[2019-06-25 07:49] LABS: CALCIUM 8.6 mg/dL (8.5-10.1); MAGNESIUM 1.7 mg/dL (1.8-2.4); POTASSIUM 3.4 mmol/L (3.5-5.1)
[2019-06-26] VITALS: BP 127/76
[2019-06-26 03:28] LABS: HEMOGLOBIN 11.5 gm/dL (14.0-18.0); MCH 32.7 pg (26.0-34.0); MCHC 32.8 g/dL (28.0-37.0); MCV 99.7 fL (80.0-100.0); RBC 3.51 mil/uL (4.50-6.00); RDW 13.4 % (10.5-14.5); WBC 8.8 thou/uL (4.0-11.0)
[2019-06-26 03:35] LABS: CALCIUM 8.4 mg/dL (8.5-10.1); CREATININE 1.1 mg/dL (0.7-1.3); MAGNESIUM 1.9 mg/dL (1.8-2.4); POTASSIUM 3.3 mmol/L (3.5-5.1)
[2019-06-26 05:00] VITALS: BP 131/86
[2019-06-26 08:43] VITALS: BP 120/70
[2019-06-26 11:46] VITALS: BP 108/75
[2019-06-26] MEDS ORDERED: NORCO 5-325 TA1 EAC1 PO (14:40)
[2019-06-26] MEDS ORDERED: XANAX 0.5 MG0.5 MG PO (14:41)
[2019-06-26] MEDS ORDERED: TYLENOL325 MG PO (14:42)
[2019-06-26] MEDS ORDERED: ENOXAPARIN100 MG/11 SUBQ (14:42)
[2019-06-26] MEDS ORDERED: OLANZAPINE ODT5 MG PO (14:42)
[2019-06-26] MEDS ORDERED: NICOTINE TRANSD21 M1 TRANSDERM (14:42)
[2019-06-26] MEDS ORDERED: IPRAT-ALBUT 0.5-3 ML INH (14:42)
[2019-06-26] MEDS ORDERED: METOPROLOL SUCC50 MG PO (14:42)
[2019-06-26] MEDS ORDERED: NORVASC10 MG PO (14:42)
[2019-06-26] MEDS ORDERED: PEPCID20 MG PO (14:42)
[2019-06-26 15:37] VITALS: BP 142/96
[2019-06-26 16:28] VITALS: BP 142/96
--- NOTE | 2019-06-30 05:54 | HC ---
[facility] [place] [address] CONSULTATION Name: STACIA INGRAM Room #: 358-P [facility] IN M.R.#: [id number] Admission: 05/30/19 Attend Phys: Kee Diaz MD Discharge: 06/26/19 Date of : 66 Report #: [id number] THIS REPORT FOR: cc: ISAURO Samaniego family physician/PCP ISAURO - Danette family physician/PCP Meri Mejia MD ~ CC: Kee BOX physician/PCP REASON FOR CONSULTATION: Hyponatremia. REASON FOR THE PRESENTATION: Cough and shortness of breath. HISTORY OF PRESENT ILLNESS: This is obtained from the medical chart. The patient is currently intubated. He is a COVID-19 positive patient, detected on June 04 and June 05. He initially presented to the Emergency Room on 05/30/2019 with cough and shortness of breath. He carries a diagnosis of hypertension, hyperlipidemia. He started to have some cough and shortness of breath a few days before his presentation. He is a smoker. He was admitted for further evaluation and management by the hospitalist team. His chest x-ray showed as expected patchy consolidations within the lungs bilaterally, more so on the left side. He had mildly elevated AST and ALT. He received appropriate treatment; however, the patient's condition deteriorated and he required intubation and moving down to the ICU. During his hospital stay, he maintained a normal kidney function. His sodium was on the low side on his presentation at 131 and has dropped down to 126; however, with the dose of diuretics, this has gone up to 132. PAST MEDICAL HISTORY: Obtained from the medical chart. 1. Hypertension. 2. Hyperlipidemia. 3. GERD. 4. Tobacco abuse. PAST SURGICAL HISTORY: None per the medical chart. SOCIAL HISTORY: Chronic smoker. Occasionally uses marijuana and there is a mention of alcohol abuse. FAMILY HISTORY: Per the medical chart, breast cancer in his sister. REVIEW OF SYSTEMS: Unobtainable. HOME MEDICATIONS: Per the medical chart included atorvastatin, amlodipine, benazepril, famotidine. PHYSICAL EXAMINATION: [facility] [address] [place] [address] CONSULTATION Name: STACIA INGRAM Room #: 358-P [facility] IN M.R.#: [id number] Admission: 05/30/19 Attend Phys: Kee Diaz MD Discharge: 06/26/19 Date of : 66 Report #: [id number] GENERAL: The patient is intubated. VITAL SIGNS: Blood pressure is 127/82. HEAD AND NECK: ET tube in place. CHEST: Bilateral crackles. CARDIOVASCULAR: No rub. ABDOMEN: Soft. EXTREMITIES: Lower extremities, +1 edema. LABORATORY VALUES: Sodium 132, BUN is 22, creatinine is 1.2. Chest x-ray consistent with infiltrates in both lungs, more so in the left upper lung. ASSESSMENT AND PLAN: 1. Hyponatremia due to recurrent ongoing chest process. 2. COVID-19. 3. This is a picture of syndrome of inappropriate antidiuretic hormone secretion related to his ongoing chest process. 4. Discontinue all IV fluids. 5. Repeat a dose of Lasix today. His sodium is up to 132 from yesterday and I expect it to fully correct by tomorrow. 6. Fluid restrictions. 7. No further renal recommendations. I will sign off. <ELECTRONICALLY SIGNED> By: Meri Mejia MD 06/30/19 0554 [id number] Meri Mejia MD /nt
== END 2019-06-26 16:32 | DRG 870 ==
LOC: ER 20:18 → EROBS 23:49 → ICU 23:49 → 3W 23:49 → 4S 05-31 20:40 → 3W 06-01 12:57 → 2N 06-02 23:53 → ICU 06-05 14:09 → 3W 06-25 15:57
PROVIDERS: Emergency Medicine; Hospitalist; Internal Medicine; Internal Medicine Infectious Disease; Internal Medicine Pulmonary Disease; Nurse Practitioner Family; Pediatrics; Specialist; ADMIT Hospitalist
PROC: 02HV33Z Insertion of Infusion Device into Superior Vena Cava, Percutaneous Approach (ICD-10-PCS; principal; 2019-06-05)
PROC: 0BH17EZ Insertion of Endotracheal Airway into Trachea, Via Natural or Artificial Opening (ICD-10-PCS; 2019-06-08)
PROC: 5A1955Z Respiratory Ventilation, Greater than 96 Consecutive Hours (ICD-10-PCS; 2019-06-08)
PROC: 30233K1 Transfusion of Nonautologous Frozen Plasma into Peripheral Vein, Percutaneous Approach (ICD-10-PCS; 2019-06-14)
DX: A41.9 Sepsis, unspecified organism (principal); U07.1 COVID-19; J12.89 Other viral pneumonia; E43 Unspecified severe protein-calorie malnutrition; G93.41 Metabolic encephalopathy; J96.21 Acute and chronic respiratory failure with hypoxia; I50.33 Acute on chronic diastolic (congestive) heart failure; E87.1 Hypo-osmolality and hyponatremia; N17.9 Acute kidney failure, unspecified; I47.1 Supraventricular tachycardia; R65.20 Severe sepsis without septic shock; E78.5 Hyperlipidemia, unspecified; K21.9 Gastro-esophageal reflux disease without esophagitis; F17.210 Nicotine dependence, cigarettes, uncomplicated; D64.9 Anemia, unspecified; F41.9 Anxiety disorder, unspecified; E87.8 Other disorders of electrolyte and fluid balance, not elsewhere classified; R73.03 Prediabetes; I11.0 Hypertensive heart disease with heart failure; T50.2X5A Adverse effect of carbonic-anhydrase inhibitors, benzothiadiazides and other diuretics, initial encounter; R74.0 Nonspecific elevation of levels of transaminase and lactic acid dehydrogenase [LDH]; E87.5 Hyperkalemia; R13.10 Dysphagia, unspecified; E83.42 Hypomagnesemia; Z71.6 Tobacco abuse counseling; Y92.89 Other specified places as the place of occurrence of the external cause
CPT/HCPCS: 10078; 10081; 10102; 10779; 10797; 10879; 85076

== ENCOUNTER 2019-06-26 15:05 | Inpatient (IN) | payer OTHER ==
[~2019-06-26] VITALS: Ht 190.5 cm; Wt 122.0 kg
--- NOTE | ~2019-06-26 | H ---
[facility] [place] [address] HISTORY AND PHYSICAL Name: STACIA INGRAM Room #: 358-P ADM IN M.R.#: [id number] Admission: 06/26/19 Attend Phys: Yariel Ching MD Discharge: Date of : 66 Report #: [id number] THIS REPORT FOR: cc: ISAURO - No family physician/PCP ISAURO - No family physician/PCP Yariel Ching MD ~ CC: Yariel BOX physician/PCP DATE OF SERVICE: 06/26/2019 HISTORY AND PHYSICAL/POST ADMISSION PHYSICIAN EVALUATION HISTORY OF PRESENT ILLNESS: The patient is a 48-year-old -[place] male originally admitted to [facility] on 05/30/2019 with shortness of breath and cough. He initially was COVID-19 x 2 negative, and then had a positive result. He was treated per COVID protocol in the ICU. He had severe sepsis, acute respiratory failure, warranting mechanical ventilation for which he was on the ventilator a total of 10 days. He had problems with encephalopathy, warranting Haldol thought to be a toxic metabolic encephalopathy. CTA ruled out a pulmonary embolism. He did have some left hip pain and had an x-ray, which revealed some left hip arthritis. With his COVID status, currently negative x 2, now 4 weeks post-onset of illness with Infectious Disease involved. He has been moved to acute in-hospital inpatient rehabilitation status, but will remain on the [facility] herrmann with his recent COVID status. PRIOR MEDICAL HISTORY: He does have a history of hypertension and vascular disease. PAST SURGICAL HISTORY: No surgical history. FAMILY HISTORY: Cancer. Sister of breast cancer. HABITS: He was a prior tobacco user, 1 pack per day. No history of alcohol abuse. SOCIAL HISTORY: He lives in an apartment and he assists his mother. There are 9 steps into the apartment. He did not utilize gait aids. His sister lives down the block and is currently checking in assisting the patient's mother. 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 He was independent, ambulatory without gait aids premorbidly. REVIEW OF SYSTEMS: Notes that he gets short of breath with increased activity. Some dizziness upon first getting up. He notes that he still has the left hip pain, which is bothersome for him. No current complaints of chest pain, [address] [address] HISTORY AND PHYSICAL Name: STACIA INGRAM Room #: 358-P [facility] IN M.R.#: [id number] Admission: 06/26/19 Attend Phys: Yariel Ching MD Discharge: Date of : 66 Report #: [id number] shortness of breath, or abdominal discomfort. PHYSICAL EXAMINATION: GENERAL: He is a pleasant, somewhat overweight, 48-year-old -[place] male, in no obvious distress. VITAL SIGNS: Last recorded temperature 98.9, pulse 102, respirations 20, and blood pressure 115/77. GENERAL: The patient is alert. HEENT: Appeared to be benign. NEUROLOGIC: Cranial nerves are grossly intact. Facies are symmetric. CHEST: Sounded clear to auscultation. CARDIOVASCULAR: Regular rate and rhythm. ABDOMEN: Bowel sounds positive, nontender, somewhat overweight. GENITOURINARY AND RECTAL: Deferred. EXTREMITIES: Functional range of motion of both upper extremities without focal weakness. DTRs are trace to 1. Lower extremities: He has functional range of motion of the right lower extremity. Strength appeared to be a grade 4-/5. Left lower extremity, he has favoring of the left hip with gentle attempted range of motion. I basically just did some gentle hip flexion and did not do any internal or external rotation. He notes some discomfort with this. He has good range of motion of the knee and ankle. There is no focal calf swelling. Strength of the lower extremity on the left is probably a grade 4-, although he again favors that left hip. Tone appeared to be intact. Functionally, he has been getting up in therapies and with sit to stand, min assist, ambulated 15 feet handheld assist with a front-wheeled walker. He has some slowed processing with his answers, but was otherwise able to follow basic one-step commands and appeared to be a reasonable historian. ASSESSMENT: A 48-year-old -[place]am[place]ian male with the following problem list: 1. Toxic metabolic encephalopathy, which appears to be improving. 2. Acute respiratory failure. He was ventilator dependent for 10 days, now much improved. 3. Acute hypoxic respiratory failure due to pneumonia and acute respiratory distress syndrome secondary to COVID-19 infection, status post extubation on 06/19/2019. 4. Supraventricular tachycardia. 5. Electrolyte abnormalities. 6. Severe sepsis. 7. Left hip pain. Evidence of arthritis on x-ray. We will obtain a CT scan of that left hip as discussed with the patient. 8. Deep venous thrombosis prophylaxis. PLAN: The patient is admitted for acute in-hospital inpatient rehabilitation. Please see the full medication list. From a post-admission physician evaluation perspective, there are no relevant changes since the preadmission screening. [address] [address] HISTORY AND PHYSICAL Name: STACIA INGRAM Room #: 358-P ADM IN M.Gia.#: [id number] Admission: 06/26/19 Attend Phys: Yariel Ching MD Discharge: Date of : 66 Report #: [id number] Please see the above review of prior and current medical and functional conditions and comorbidities. Please see the patient's previous and current functional status. As far as risk of complications, the patient has multiple medical comorbidities as noted above. Initial plan of care involves the interdisciplinary acute inpatient rehabilitation program. Prognosis is reasonably good with estimated length of stay probably 5-10 days. We will need to see how he progresses in therapies as he may need longer. Potential barriers would include his multiple medical comorbidities and decreased functional status. The overall plan of care is based on the preadmission screen, post-admission physician evaluation and how he is doing with his current function. 1. Estimated length of stay is as noted above. 2. Medical prognosis is reasonably good. 3. Anticipated interventions include the interdisciplinary acute inpatient rehabilitation program. 4. Anticipated functional outcomes would be for the patient to become modified independent with transfers, mobility, and ADLs. 5. Discharge destination would be back to the home setting with his mother. He does need to go up and down 9 steps, so he may need a longer stay in that regard. 6. Expected therapy by discipline includes PT, OT, and speech. Goals to maximize his overall functional independence and abilities with mobility and ADLs as well as cognition. 7. With the patient's complaints of some dizziness with standing, we will order orthostatic blood pressure and impulse. By: 1233 1328 Yariel Ching MD /nt
[~2019-06-26 15:05] MED LIST changes: +ENOXAPARIN100 MG/11 SUBQ; +IPRAT-ALBUT 0.5-3 ML INH; +METOPROLOL SUCC50 MG PO; +NICOTINE TRANSD21 M1 TRANSDERM; +NORCO 5-325 TA1 EAC1 PO; +NORVASC10 MG PO; +OLANZAPINE ODT5 MG PO; +TYLENOL325 MG PO; +XANAX 0.5 MG0.5 MG PO
[2019-06-26 21:00] VITALS: BP 137/90
[2019-06-27 05:47] LABS: HEMATOCRIT 33.4 % (42.0-52.0); HEMOGLOBIN 11.1 gm/dL (14.0-18.0); MCH 32.8 pg (26.0-34.0); MCHC 33.2 g/dL (28.0-37.0); MCV 98.7 fL (80.0-100.0); RBC 3.38 mil/uL (4.50-6.00); RDW 12.9 % (10.5-14.5); WBC 8.2 thou/uL (4.0-11.0)
[2019-06-27 05:59] LABS: CALCIUM 8.1 mg/dL (8.5-10.1); POTASSIUM 3.4 mmol/L (3.5-5.1)
--- NOTE | 2019-06-27 06:45 | NUR ---
ENHANCED PRECAUTIONS STILL IN EFFECT. PT IS MS/REHAB STATUS NOW. PT UP TO BSC WITH STANDBY. VSS STABLE, ONLY COMPLAINT IS LEFT HIP PAIN. HOURLY ROUNDING AND PT CAN USE CALL LIGHT EFFECTIVELY.
[2019-06-27 08:58] VITALS: BP 115/77
--- NOTE | 2019-06-27 09:20 | NUR ---
chart review, pt admitted to acute rehab. he going to stay on 3 w, he had 2 negative covid 19. cm spoke with pt via phone call, intro to cm, team meeting and dcp. he getting ready to work with therapy. "live with mom. independent prior to hospital. no dme "/farnaz. will cont following as needed for dc needs.
[2019-06-27 17:59] VITALS: BP 126/76
[2019-06-27 18:00] VITALS: BP 123/77
--- NOTE | 2019-06-27 18:33 | NUR ---
ASSUMED PATIENT CARE AT 0700. A/O X4. PLEASANT. C/O LEFT HIP PAIN. WORK WITH PT/OT/OT. PROGRESSING TOWARDS POC GOALS.
[2019-06-27 19:10] VITALS: BP 121/83
[2019-06-28 05:28] VITALS: BP 138/76
--- NOTE | 2019-06-28 07:12 | NUR ---
ASSUMED CARE AT 1900, ASSESSMENT COMPLETED. PT DENIED SOB OR NAUSEA. C/O PAIN IN LEFT HIP AND BUTTOCK; GIVEN NORCO TWICE OVERNIGHT. USED URINAL OVERNIGHT. NO OTHER CONCERNS, SHIFT REPORT GIVEN AT 0700.
[2019-06-28 08:24] VITALS: BP 119/78
[2019-06-28 12:00] VITALS: BP 120/72
[2019-06-28 14:27] LABS: CALCIUM 8.6 mg/dL (8.5-10.1); MAGNESIUM 1.4 mg/dL (1.8-2.4); POTASSIUM 4.1 mmol/L (3.5-5.1)
[2019-06-28 15:40] VITALS: BP 119/71
--- NOTE | 2019-06-28 16:32 | NUR ---
PT IS A&OX3, PT'S VS ARE STABLE, BUT PT HAS SOB WITH ACTIVITIES, PT HAS PT/OT/SP WORKING WITH HIM, PT GETS UP TO CHAIR WITH 1 ASSIST, PT'S L HIP PAIN CAN CONTROL BY MEDICATION , RN HAS CALLED DR TO REPORT ABNORMAL LAB RESULTS, NEW ORDER RECEIVED, PT HAS MAGESIUM REPLACEMENT BY IV, PT IS RELAXING NOW.
[2019-06-28 20:11] VITALS: BP 136/91
--- NOTE | 2019-06-29 04:25 | NUR ---
ASSUMED CARE AT 1900. PT CONTINUES TO C/O PAIN IN LEFT HIP, STATING IT WAS WORSE D/T PHYSICAL THERAPY, HAVE GIVEN NORCO TWICE OVERNIGHT. PT DENIES NAUSEA. PT STOOD UP AND STRAIGHTENED BED WHILE STAFF IN THE ROOM, WHICH WINDED HIM. NO OTHER CONCERNS, WILL CONTINUE TO MONITOR.
[2019-06-29 05:54] VITALS: BP 124/85
[2019-06-29 07:48] LABS: CALCIUM 8.6 mg/dL (8.5-10.1); CREATININE 0.9 mg/dL (0.7-1.3); MAGNESIUM 1.8 mg/dL (1.8-2.4); POTASSIUM 3.3 mmol/L (3.5-5.1)
[2019-06-29 08:18] VITALS: BP 142/77
--- NOTE | 2019-06-29 18:23 | NUR ---
PATIENT REPORTS PAIN TO HIP 08/21...MEDICATED WITH NORCO AND DECLINED ICE PACKS...
[2019-06-29 20:12] VITALS: BP 135/69
[2019-06-29] MEDS ORDERED: CELEXA 10 MG TA10 M1 PO ×2 (20:28→20:29)
--- NOTE | 2019-06-30 03:09 | NUR ---
Patient making progress towards outcome goals. Vital signs stable.Good pain control with Hydrocodone. High fall risks, fall preacutions in place.
[2019-06-30 07:09] VITALS: BP 135/78
--- NOTE | 2019-06-30 13:54 | NUR ---
FAXED CLINICAL UPDATE TO [facility] RECEIVED CONFIRMATION AND SPOKE WITH GHAZAL IN ADM WILL KEEP FACILITY UPDATED. DP TO FOLLOW.
[2019-06-30 19:25] VITALS: BP 148/88
--- NOTE | 2019-07-01 04:05 | NUR ---
Patient making slow progress towards outcome goals. Constipation is major concern tonight. Received, Docusate, Senna, Miralax, passing a lot of gas, several trips to [facility] so far still no results. Wiped out patients energy. Desat on room air mid 80's. placed on 2L/NC sat 94%. Hydocodone given for pain and Xanax for anxiety with some relief. Patient high fall risk, okeyed by PT to transfer from bed to BS independently. Bed alarm off. Patient does call out appropriately for needs. Good oral intake and output. Vitalsigns stale.
--- NOTE | 2019-07-01 06:10 | NUR ---
Patient called out c/o chest pain/palpitations and shortness of breath. On evaluation HR noted to be at 178/min. Placed on telemetry, apperas to be SVT. A Susan EDWARD notified, orders received. EKG confirmed SVT. IV started on RAC and Metoprolol 5 mg IVP given. Heart rate eventually got down to 70's Sinus. Berto Fraire notified with orders for stat labs and Cardiology consult.
[2019-07-01 06:11] VITALS: BP 137/110
[2019-07-01 08:04] LABS: CALCIUM 8.3 mg/dL (8.5-10.1); MAGNESIUM 1.6 mg/dL (1.8-2.4)
[2019-07-01 08:07] VITALS: BP 136/81
[2019-07-01] MEDS ORDERED: FLECAINIDE ACET50 M2 PO (11:01)
[2019-07-01] MEDS ORDERED: MIRALAX17 GM PO (11:01)
[2019-07-01] MEDS ORDERED: COLACE100 MG PO (11:01)
--- NOTE | 2019-07-01 11:16 | NUR ---
vendor form and hh list choice given to bedside nurse to give to pt and place in pt chart.
[2019-07-01] MEDS ORDERED: VENTOLIN HFA 1818 GM INH (13:21)
--- NOTE | 2019-07-02 08:00 | EKG ---
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: LIU : 1970 Requested By: Kathryn Fraire Order Number: [id number] MD: Kulwant Porter Measurements Intervals [place] Rate: 176 P: 0 KS: QRS: -2 QRSD: 84 T: -88 QT: 327 QTc: 560 Interpretive Statements Supraventricular tachycardia Repolarization abnormality, prob rate related Compared to ECG 06/23/2019 18:58:18 Supraventricular tachycardia is now present Electronically Signed On 07-02-2019 7:58:42 CDT by Kulwant Porter [email or web address] <ELECTRONICALLY SIGNED> By: Kulwant Porter MD, [facility] 07/02/19 0758 7 7 Kulwant Porter MD, [facility] /EPI
== END 2019-07-01 13:09 | disposition short-term general hospital (02) | DRG 91 ==
LOC: 3W 17:07
PROVIDERS: Internal Medicine; Nurse Practitioner Family; ADMIT Physical Medicine & Rehabilitation
DX: G92 Toxic encephalopathy (principal); J18.9 Pneumonia, unspecified organism; A41.9 Sepsis, unspecified organism; R65.20 Severe sepsis without septic shock; J96.21 Acute and chronic respiratory failure with hypoxia; I50.33 Acute on chronic diastolic (congestive) heart failure; I47.1 Supraventricular tachycardia; S70.02XA Contusion of left hip, initial encounter; R53.81 Other malaise; E87.6 Hypokalemia; D64.9 Anemia, unspecified; E83.42 Hypomagnesemia; M16.12 Unilateral primary osteoarthritis, left hip; Z20.828 Contact with and (suspected) exposure to other viral communicable diseases; K59.00 Constipation, unspecified; I11.0 Hypertensive heart disease with heart failure; W18.30XA Fall on same level, unspecified, initial encounter; R74.0 Nonspecific elevation of levels of transaminase and lactic acid dehydrogenase [LDH]; E87.5 Hyperkalemia
CPT/HCPCS: 10112

== ENCOUNTER 2019-07-01 13:07 | Inpatient (IN) | payer OTHER ==
[~2019-07-01 13:07] MED LIST changes: +CELEXA 10 MG TA10 M1 PO; +COLACE100 MG PO; +FLECAINIDE ACET50 M2 PO; +MIRALAX17 GM PO
[2019-07-01] MEDS ORDERED: VENTOLIN HFA 1818 GM INH (13:21)
--- NOTE | 2019-07-01 15:14 | NUR ---
on-going assessment: CM REVIEWED CHART. PT HAS DISTENTION OF THE COLON AND RECTUM AND PLANS ARE FOR PATIENT TO HAVE COLONOSCOPY TOMORROW AM. CM CONTACTED GHAZAL IN ADMISSIONS AT [facility] TO UPDATE. CM WILL CONTINUE TO FOLLOW TO ASSIST NEEDED.
--- NOTE | 2019-07-01 15:58 | NUR ---
ASSUMED CARE OF PT AT 0700. PT W/ EPISODE OF SVT OVERNIGHT FOR APPROX 15-20min, HR IN 170's. 5MG METOPROLOL IV ADMIN - NOW SINUS RHYTHM. CHEST PAIN SUBSIDED. CARDIO RECONSULTED. MEDS ADJUSTED. NOW ON TELE. TRANSFERED FROM REHAB TO ACUTE CARE. NUC MED TESTING PERFORMED THIS AFTERNOON. NO EVENTS ON TELEMETRY AFTER OVERNIGHT EVENTS. WILL CONT TO MONITOR.
[2019-07-01 17:22] VITALS: BP 137/88
[2019-07-01 19:57] VITALS: BP 125/72
--- NOTE | 2019-07-01 21:06 | NUR ---
PT RESTING IN BED ON PHONE AND WATCHING TV. PT USING BSC INDEP. PT STATING HE WANTS TO HAVE A BM. SHARED PLAN IF LACTULOSE NOT EFFECTIVE SUPP WILL BE ORDERED TOMORROW. PT REPORTED DIFFICULTY SLEEPING AND DISCUSSED POSSIBLY TAKING ANXIETY MEDS OR PAIN FOR L LEG PAIN, THAT HE WOULD DECIDE LATER. PT REQUESTED JUICE AND PROVIDED. PT SHARED HOW HIS CP AND INCREASED HR THIS AM SCARED HIM. WILL ENCOURAGE HS SCD COMPLIANCE. TELE SR.
[2019-07-02 00:01] VITALS: BP 147/87
--- NOTE | 2019-07-02 00:19 | NUR ---
HR INCREASED TO 183 PT INITIALLY DENIED CHEST DISCOMFORT UPON ONSET, WITHIN A FEW MINUTES REPORTED CHEST DISCOMFORT BUT LESS THAN AM EPISODE OF SVT. PROVIDER CALLED IV LOPRESSOR X 1 GIVEN. PT WAS EATING WHEN NURSE WENT TO ADMINISTER MEDICATION AND HE REQUESTED XANAX AND HYDROCODONE. PT PROVIDED PRNS. HR DECREASED TO 83 SR. AM LOPRESSOR DOSE CHANGED TO 0600.
[2019-07-02 04:47] VITALS: BP 135/77
[2019-07-02 05:40] LABS: ABSOLUTE NEUTROPHILS 4.5 thou/uL (1.4-8.2); BASOPHILS 0.6 % (0.0-2.0); EOSINOPHILS 5.3 % (0.0-3.0); HEMATOCRIT 30.2 % (42.0-52.0); HEMOGLOBIN 10.2 gm/dL (14.0-18.0); MCH 33.6 pg (26.0-34.0); MCHC 33.9 g/dL (28.0-37.0); MCV 99.2 fL (80.0-100.0); MONOCYTES 9.5 % (1.0-8.0); PLATELET COUNT 375 thou/uL (150-400); POLYS 61.6 % (36.0-66.0); RBC 3.05 mil/uL (4.50-6.00); RDW 13.7 % (10.5-14.5); WBC 7.3 thou/uL (4.0-11.0)
[2019-07-02 05:58] LABS: CALCIUM 8.4 mg/dL (8.5-10.1); MAGNESIUM 1.6 mg/dL (1.8-2.4); POTASSIUM 3.8 mmol/L (3.5-5.1)
[2019-07-02 08:04] VITALS: BP 138/79
--- NOTE | 2019-07-02 13:20 | NUR ---
INITIAL ASSESSMENT: NUNO reviewed chart and spoke with nursing and attending physician. Pt was discharged from acute rehab services level of care and returned to acute care status yesterday due to cardiac issues. Cardiology consulted. Pt remains in Enhanced Isolation at this time. NUNO spoke with pt via phone. Introduced role of SW. Pt is alert/orienated and states he lives at home with his mother. Prior to admission, pt was independent with ADLs. 3 steps to enter their home and 6 steps inside. Pt was not using any DME. No hx of HH services. Pt states his goal is to return home when medically stable. Pt reports that he is still short of breath with activity. NUNO discussed discharge needs: return to or go home with HH services. NUNO explained that HH services would only include RN visits. HH therapy is not covered by pt's insurance. Pt verbalized understanding. NUNO discussed case with restorative rehab aide. rehab physician or RETAIL LOAN ORIGINATOR will evaluate pt to determine if pt needs acute rehab services prior to returning home. NUNO is following to assist as needed with discharge planning.
--- NOTE | 2019-07-02 18:36 | NUR ---
ASSUMED CARE OF PT AT 0700. PT AOX4 IN NO ACUTE DISTRESS. VITALS STABLE. UNEVENTFUL ON TELEMETRY THROUGHOUT DAY. SMALL BURST OF SVT OVERNIGHT LASTING LESS THAN 5 MINUTES. CARDIOLOGY AWARE. ANTICIPATE D/C BACK TO 5N/REHAB IF CONTINUES TO BE ASYMPTOMATIC AND NO ARRHYTHMIA ON TELEMETRY. 2 SMALL BOWEL MOVEMENTS AFTER LACTULOSE/DUCOLAX SUPP/MAG CITRATE TODAY... PT REPORTS FEELING BETTER. PT PROBGRESSING TOWARD POC GOALS.
[2019-07-02 19:56] VITALS: BP 135/90
--- NOTE | 2019-07-02 23:56 | NUR ---
PT AOX4. PT REPORTING PAIN IN LEFT HIP. PT RECEIVING PRN PO NORCO Q4HR. PT ALSO REPORTING ANXIETY 08/21. PT RECEIVING PRN PO XANAX BID. PT INDEPENDENT WITH AMBULATION AND TRANSFERS. PT TOLERATING PO INTAKE OF FLUIDS AND HEART HEALTHY DIET. PT COMMUNICATING WITH FAMILY VIA PERSONAL CELL PHONE TO PROVIDE STATUS UPDATES. PT ENCOURAGED TO NOTIFY STAFF FOR ALL NEEDS. CALL LIGHT IN REACH. WILL CONTINUE TO MONITOR.
--- NOTE | 2019-07-03 00:34 | NUR ---
ASSUMED CARE AT 0030. PT SLEEPING AT THIS TIME, WILL ASSESS AT 0400. HR SR IN 80'S. WILL CONTINUE TO MONITOR.
[2019-07-03 03:35] VITALS: BP 134/77
[2019-07-03 10:34] LABS: CALCIUM 8.4 mg/dL (8.5-10.1); CREATININE 0.8 mg/dL (0.7-1.3); MAGNESIUM 2.1 mg/dL (1.8-2.4); POTASSIUM 4.1 mmol/L (3.5-5.1)
--- NOTE | 2019-07-03 12:28 | NUR ---
ON-GOING ASSESSMENT: CM REVIEWED CHART AND SPOKE WITH ATTENDING. PTS FLECANIDE WAS INCREASED DUE TO A SHORT RUN OF SVT THIS AM. PLANS ARE FOR PATIENT TO POSSIBLY DISCHARGE TOMORROW. 5N IS FOLLOWING PT BUT HE IS HIGH LEVEL AND MAY BE ABLE TO RETURN HOME AT DISCHARGE. IF PATIENT IS NEEDING HH AT DISCHARGE, PT WILL NEED A PCP OR LIKELY NEED HOSPITALIST TO FOLLOW FOR HH ORDERS HE IS ONLY ABLE TO GET RN FOR HH IF NEEDED DUE TO HIS MEDICAID.
[2019-07-03 17:18] VITALS: BP 138/84
--- NOTE | 2019-07-03 19:04 | NUR ---
PATIENT UP AD CHANDLER. VSS. PROGRESSING TOWARDS POC GOALS.
[2019-07-03 19:56] VITALS: BP 137/83
[2019-07-04 05:52] VITALS: BP 134/88
[2019-07-04 08:35] VITALS: BP 140/98
[2019-07-04 10:30] VITALS: BP 140/98
[2019-07-04] MEDS ORDERED: TAMBOCOR 100 M100 M1 PO (12:15)
--- NOTE | 2019-07-04 12:53 | NUR ---
DISCHARGE NOTE: NUNO reviewed chart and spoke with nursing and attending physician. Pt is medically stable for discharge home today with HH services. NUNO spoke with pt via phone to discuss discharge plan. Pt is aware and agreeable with returning home today. SW explained that HH will contact him to arrange his HH visit. Options provided for HH agencies. No preference voiced. NUNO confirmed pt's home address and phone number. Pt does not have a PCP. Hospitalist to follow for HH orders. NUNO sent Health Resource Guide to pt's nurse to provide pt, in order to arrange primary care. Pt verbalized understanding. Pt's girlfriend will provide transportation home. Pt's new prescriptions will be filled at [facility] prior to discharge. Pt's nurse to take signed scripts to the pharmacy when avialable. NUNO faxed face sheet to [facility] and spoke with pharmacist. Pt does have active Medicaid at this time. NUNO received call from pt's sister, Pily, requesting info regarding pt's Medicaid and social security/disabliity. NUNO provided contact info for [facility] and encouraged pt and family to review guidelines if pt would like to apply for social security/disability. Pt is hoping to get back to work in the future. 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 NUNO faxed clinical info and finalized discharge orders/summary to [facility] . Spoke with Linda in intake, who states they are able to provide one HH RN visit. Contact info for HH placed in pt's discharge summary. Pt's nurse to provide pt with COVID-19 education with discharge ppwk. No additional SW needs identified at this time, but is available to assist should needs arise.
--- NOTE | 2019-07-04 15:09 | NUR ---
progressing towards poc goals. dc to home with hh now.
== END 2019-07-04 15:07 | disposition home health service (06) | DRG 308 ==
LOC: 3W 13:07
PROVIDERS: Nurse Practitioner; ADMIT Internal Medicine
DX: I47.1 Supraventricular tachycardia (principal); J96.01 Acute respiratory failure with hypoxia; J18.9 Pneumonia, unspecified organism; J96.21 Acute and chronic respiratory failure with hypoxia; I50.33 Acute on chronic diastolic (congestive) heart failure; G93.40 Encephalopathy, unspecified; I11.0 Hypertensive heart disease with heart failure; E78.5 Hyperlipidemia, unspecified; K21.9 Gastro-esophageal reflux disease without esophagitis; F41.9 Anxiety disorder, unspecified; F17.210 Nicotine dependence, cigarettes, uncomplicated; K59.00 Constipation, unspecified; E87.6 Hypokalemia; E83.42 Hypomagnesemia; Z71.6 Tobacco abuse counseling; Z79.899 Other long term (current) drug therapy
CPT/HCPCS: 10779; 10879

== ENCOUNTER → 2019-08-11 | Outpatient (CLI) | payer OTHER ==
[~2019-08-11] MED LIST changes: +TAMBOCOR 100 M100 M1 PO; +VENTOLIN HFA 1818 GM INH
== END ==
LOC: SJCVC 11:32
PROVIDERS: ATTEND Internal Medicine Cardiovascular Disease
DX: I47.1 Supraventricular tachycardia (principal); U07.1 COVID-19; I10 Essential (primary) hypertension

== ENCOUNTER → 2019-08-19 | Outpatient (CLI) | payer OTHER | LOC: RAD 09:53 | PROVIDERS: ATTEND Pediatrics | DX: J98.4 Other disorders of lung (principal); R06.02 Shortness of breath ==

== ENCOUNTER → 2019-09-22 | Outpatient (CLI) | payer OTHER | LOC: LAB 13:40 | PROVIDERS: ATTEND Internal Medicine Cardiovascular Disease | DX: Z01.812 Encounter for preprocedural laboratory examination (principal); Z11.59 Encounter for screening for other viral diseases ==

== ENCOUNTER → 2019-09-25 | Outpatient (CLI) | payer OTHER ==
[~2019-09-25] VITALS: Ht 190.5 cm; Wt 127.0 kg
--- NOTE | ~2019-09-25 | P ---
[facility] [place] [address] PROCEDURE REPORT Name: STACIA INGRAM Room #: MATT [place]#: [id number] Admission: 09/25/19 Attend Phys: Alan Horton MD Discharge: Date of : 66 Report #: [id number] THIS REPORT FOR: cc: ISAURO - No family physician/PCP FAM - No family physician/PCP Alan Horton MD ~ CC: ISAURO physician/PCP Alan Horton SVT ABLATION PREOPERATIVE DIAGNOSIS: Supraventricular tachycardia. 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 PROCEDURES PERFORMED: 1. CPT code 08256. 2. EP with left atrial pacing and recording, CPT code 56286. 3. Program stimulation pacing after IV drug infusion, CPT code 54456. 4. 3D mapping, CPT code 96421. HISTORY: The patient is a 48-year-old male with a history of recurrent supraventricular tachycardia despite antiarrhythmic drug therapy. He is here for EP study and possible ablation. ANESTHESIA: The patient underwent MAC anesthesia with no anesthesia related complications. DESCRIPTION OF PROCEDURE: The patient underwent informed consent. We discussed the details of the procedure including the risks, which include but not limited to bleeding, vascular damage, cardiac perforation, stroke, WV as well as damage to the levelock conduction system. He understood these risks and is willing to proceed. The patient was brought to EP laboratory in fasting and sedated state, prepped and draped in a sterile fashion. I obtained access to the femoral veins placing 8, 2, 6 and a 7-Malay short sheath. Next, under fluoroscopy, 3 quadripolar catheters were placed at the HRA, His and RV positions and decapolar catheter was placed in the coronary sinus. While placing catheters, the patient did go into SVT and this terminated while I was trying to position catheters. Pre-ablation, the patient was in sinus rhythm with sinus cycle length of 720 milliseconds, WV interval 130 milliseconds, QRS duration 90 milliseconds, QT interval 395 milliseconds, AH interval 85 milliseconds, HV interval 42 milliseconds. Next, atrial burst pacing was performed and the patient again went into SVT. I did attempt to entrain this, but this was unsuccessful. The SVT demonstrated tachycardia cycle length of 360 milliseconds, a septal VA time of 190 milliseconds. Next, VA block was noted at 280 milliseconds. [facility] [address] [address] PROCEDURE REPORT Name: STACIA INGRAM Room #: MATT SORIANO Helder#: [id number] Admission: 09/25/19 Attend Phys: Alan Horton MD Discharge: Date of : 66 Report #: [id number] ERP was noted at 230 milliseconds at a [address] cycle length. VA conduction was both midline and decremental . Next, isoproterenol infusion was started at 1 mcg per minute. As before, the patient was easily inducible; however, I still could not entrain this tachycardia. As such, it was unclear if this was a possible atrial tachycardia versus atypical AV malcolm reentrant tachycardia. As mentioned, it was easily inducible with single atrial extrastimuli. I decided to map the tachycardia. I placed a PentaRay catheter into the high right atrium and created a detailed 3D voltage map of the right atrium. The activation map showed that the earliest area of activation was close to the coronary sinus ostium. Therefore, it appeared that this was likely an atypical AVNRT that I could not entrain. To further solidify the diagnosis, I put the patient back into SVT, gave 12 of adenosine and this terminated the tachycardia. 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 3D MAPPING AND ABLATION: Next, I removed my HRA catheter and placed a SR0 and a 4-mm ablation catheter into the right atrium and created a detailed 3D geometry of the His bundle region and slow pathway region. I performed a total of 4 ablation lesions. The 2 first lesions did not result in junctionals. The third ablation lesion resulted in nice slow junctionals and lasted 60 seconds. The fourth lesion at the same spot did not result in any further junctionals. A repeat EP study was then performed on isoproterenol infusion and SVT could no longer be induced. We tested for about 20 minutes and the arrhythmia was clearly cured. As such, isoproterenol was discontinued. We continued testing and post-ablation, the patient remained in sinus rhythm with sinus cycle length of 880 milliseconds, WV interval 140 milliseconds, QRS duration 88 milliseconds, QT interval 361 milliseconds. As such, catheters and sheaths were pulled. Hemostasis obtained. The patient awoke neurologically and hemodynamically intact. CONCLUSIONS: 1. Successful ablation of atypical AV malcolm reentry tachycardia. 2. Normal SA malcolm function. 3. Normal AV malcolm function. 4. Normal His-Purkinje function. 5. No other inducible arrhythmias on or off isoproterenol. By: [id number] [id number] Alan Horton MD /nt
[2019-09-25 09:47] VITALS: BP 169/111
[2019-09-25 10:03] LABS: ABSOLUTE NEUTROPHILS 3.6 thou/uL (1.4-8.2); BASOPHILS 0.9 % (0.0-2.0); EOSINOPHILS 0.2 % (0.0-3.0); HEMATOCRIT 48.5 % (42.0-52.0); HEMOGLOBIN 16.5 gm/dL (14.0-18.0); LYMPHOCYTES 34.5 % (24.0-44.0); MCH 33.6 pg (26.0-34.0); MCHC 34.1 g/dL (28.0-37.0); MCV 98.8 fL (80.0-100.0); MONOCYTES 9.7 % (1.0-8.0); PLATELET COUNT 229 thou/uL (150-400); POLYS 54.7 % (36.0-66.0); RBC 4.91 mil/uL (4.50-6.00); RDW 14.9 % (10.5-14.5); WBC 6.6 thou/uL (4.0-11.0)
[2019-09-25 10:21] LABS: PROTIME 10.5 Seconds (9.3-11.4)
[2019-09-25 10:22] LABS: CALCIUM 9.2 mg/dL (8.5-10.1)
[2019-09-25 10:28] LABS: ALBUMIN 3.8 g/dL (3.4-5.0); TOTAL BILIRUBIN 0.5 mg/dL (0.2-1.0)
== END | disposition home or self-care (01) ==
LOC: CATH 08:57
PROVIDERS: ATTEND Internal Medicine Cardiovascular Disease
DX: I47.1 Supraventricular tachycardia (principal); I10 Essential (primary) hypertension; E78.5 Hyperlipidemia, unspecified; K21.9 Gastro-esophageal reflux disease without esophagitis; F41.9 Anxiety disorder, unspecified; F17.210 Nicotine dependence, cigarettes, uncomplicated; Z98.890 Other specified postprocedural states; Z79.899 Other long term (current) drug therapy
CPT/HCPCS: 62110; 62900; 70005

== ENCOUNTER → 2019-11-21 | Outpatient (CLI) | payer OTHER | LOC: LAB 11-20 12:02 | PROVIDERS: ATTEND Pediatrics | DX: Z20.828 Contact with and (suspected) exposure to other viral communicable diseases (principal) ==

== ENCOUNTER → 2019-11-28 | Outpatient (CLI) | payer OTHER | LOC: RAD 08:39 | PROVIDERS: ATTEND Pediatrics | DX: R06.00 Dyspnea, unspecified (principal); R06.02 Shortness of breath ==